=== PATIENT | female | born 1990 | race Caucasian/White ===

== ENCOUNTER 2024-04-13 06:01 | Emergency (ER) | payer BC, SELFPAY ==
[2024-04-13 06:04] VITALS: BP 118/79
[2024-04-13 06:26] VITALS: BMI 18.2
[2024-04-13 06:49] LABS: HCG, Serum Qualitative Screen Negative
[2024-04-13 06:57] LABS: % Basophils 0.5 % (0-2); % Eosinophils 0.5 % (0-6); % Immature Granulocytes 0.4 % (0-0.5); % Lymphocytes 3.4 % (20.5-51.1); % Monocytes 7.2 % (1.7-9.3); Absolute Basophils 0.1 10^3/uL (0-0.2); Absolute Eosinophils 0.1 10^3/uL (0-0.7); Absolute Lymphocytes 0.4 10^3/uL (1.2-3.4); Absolute Monocytes 0.8 10^3/uL (0.1-0.6); Absolute Neutrophils 9.6 10^3/uL (1.4-6.5); Hematocrit 42.3 % (37.0-47.0); Hemoglobin 14.7 g/dL (12.0-16.0); Mean Corp Hgb Conc. 34.8 g/dL (33.0-37.0); Mean Corpuscular Hgb 31.4 pg (27.0-31.0); Mean Corpuscular Volume 90.4 fL (81.0-99.0); Nucleated Red Blood Cells % 0 %; Red Blood Cell Count 4.68 10^6/uL (4.20-5.40); Red Cell Dist. Width 12.2 % (11.5-14.5); White Blood Cell Count 10.9 10^3/uL (4.8-10.8)
--- NOTE | 2024-04-13 07:02 | ED.GENMED ---
History of Present Illness
General
Chief Complaint: Abdominal Symptoms
Source: patient
Exam Limitations: none
Nursing documentation reviewed up to this point in time: agreed with
History of Present Illness
History of Present Illness:
34 yo female w no PMHX presents for sudden onset N & V since 10 p.m. last night. Vomited hourly, last emesis 1 hour ago, nonbloody. Diarrhea several times, last episode 4:30 a.m., non bloody. Denies abdominal pain. No known food exposures, no recent
ATBX, no known sick contacts, no recent travel. Denies fever, SOB, CP. Currently menstruating.
Past History
Past History
ED Past Medical History: None
ED Past Surgical History:
Social History
Tobacco: Non-smoker
Alcohol: None
Drug: None
Personal:
Living: with family
Employment: Employed
Review of Systems
Review of Systems
Allergies reviewed?: Yes
All Other Systems: ROS reviewed and negative except as documented in HPI and ROS
Constitutional: Denies fever or chills
EENT: Denies sore throat
Respiratory: Denies trouble breathing
Cardiac: Denies chest pain
ABD/GI: Reports nausea, vomiting and diarrhea; Denies abdominal pain, bloody stools or black stools
: Denies dysuria or difficulty voiding
Musculoskeletal: Reports no symptoms
Skin: Reports other (rash of poison sabi on hands)
Neurological: Reports no symptoms; Denies dizzy, headache or weakness
Phy Exam
Physical Exam
Physical Exam:
GENERAL: No acute distress. A&Ox3.
CONSTITUTIONAL: Afebrile.
EYES: Clear,, conjunctivae normal
ENMT: moist mucus membranes, Pharynx nl
RESPIRATORY: Regular respirations, nonlabored, lungs clear.
CARDIOVASCULAR: Regular rate and rhythm, no murmurs, no rubs.
GI: Soft, nontender, normal BS
MUSCULOSKELETAL: Moves with ease. Well perfused.
SKIN: Warm, dry, pink
PSYCH: Normal mood and affect. Well kept, interactive and appropriate
NEUROLOGIC: Awake, alert and oriented. No focal neurological deficits
Course
Orders/Labs/Results
Orders:
Orders
04/13/24 06:16
IV Insert/Care/Rem.- Treatment PRN
Test Result ONCE
04/13/24 06:33
Complete Blood Count/With Diff Urgent
Comprehensive Metabolic Panel Urgent
HCG, Serum Qualitative Screen Urgent
Comment: Notify provider if positive test present
Lipase Urgent
Urinalysis Reflex To Culture Urgent
Date Specimen was Collected: 04/13/24
Time Specimen was Collected: 06:16
Urine Microscopic Reflex Cult Urgent
04/13/24 08:17
Ondansetron HCl [Zofran] 4 mg PO NOW STA
Ondansetron Orally Disint [Zofran Odt (Orally Disintegrating)] 4 mg .ROUTE .STK-MED ONE
04/13/24 08:18
Ondansetron Orally Disint [Zofran Odt (Orally Disintegrating)] 4 mg PO NOW STA
Abnormal Lab Results
04/13/24
06:33
WBC 10.9 H 10^3/uL
(4.8-10.8)
MCH 31.4 H pg
(27.0-31.0)
MPV 14.1 H fL
(7.4-10.4)
Absolute Neuts (auto) 9.6 H 10^3/uL
(1.4-6.5)
Absolute Lymphs (auto) 0.4 L 10^3/uL
(1.2-3.4)
Absolute Monos (auto) 0.8 H 10^3/uL
(0.1-0.6)
Neutrophils % 88.0 H %
(42.2-75.2)
Lymphocytes % 3.4 L %
(20.5-51.1)
BUN 19 H mg/dl
(7-17)
Glucose 135 H mg/dl
(70-99)
Albumin 5.1 H g/dl
(3.5-5.0)
Urine Ketones 1+ A
(Negative)
Ur Occult Blood Reflex 3+ A
(Negative)
Urine Bilirubin 1+ A
(Negative)
04/13/24 06:33
04/13/24 06:33
Vital Signs
Initial and Last Documented VS:
Initial Vital Signs
Temp Pulse Resp BP Pulse Ox
99.1 F 128 16 118/79 100
04/13/24 06:04 04/13/24 06:04 04/13/24 06:04 04/13/24 06:04 04/13/24 06:04
Last Documented Vital Signs
Temp Pulse Resp BP Pulse Ox
99.1 F 109 14 109/73 100
04/13/24 06:04 04/13/24 08:15 04/13/24 08:15 04/13/24 08:00 04/13/24 08:15
MDM/Problems Addressed
Differential Diagnosis Includes:
Viral gastroenteritis,
MDM/Problems Addressed:
34 yo female w no PMHX presents for sudden onset N & V since 10 p.m. last night. Vomited hourly, last emesis 1 hour ago, nonbloody. Diarrhea several times, last episode 4:30 a.m., non bloody. Denies abdominal pain. No known food exposures, no recent
ATBX, no known sick contacts, no recent travel. Denies fever, SOB, CP. Currently menstruating.
Pleasant, well appearing, afebrile, NAD
7:25 a.m.
Continues to deny pain, nausea. Trying po fluids
CBC with mildly elevated Neutrophils reactive from infectious process, otherwise normal
CMP No clinically significant abnormality
Lipase normal
Pt tolerating fluids, still 'a little' nauseous. Zofran ordered prior to discharge. Rx for Zofran given to pt
Copy of lab work given to patient and offered to answer any questions, she had none
Pt ambulated out with normal gait at discharge
*Critical Care Note
Total Time (30-74mins, 75-104mins- exclusive of procedures): Not Applicable
ED Attending Note
-
Portions of this chart may have been created with voice recognition software.� Occasional wrong word or��sound alike� substitutions may have occurred due to the inherent limitations of voice recognition software.
Discharge Plan
Departure
Patient Disposition: Home (Routine Discharge)
Date of Disposition: 04/13/24
Time of Disposition: 08:05
Patient with high blood pressure during this ER visit?: No
Condition: Good
Discharge Problem:
Gastroenteritis
Instructions: Diarrhea in teens and adults, Dehydration, Adult (DC), Nausea and Vomiting, Adult (DC)
Prescriptions:
New
ondansetron 4 mg tablet,disintegrating
4 mg PO Q8H PRN (Reason: nausea and vomiting) 3 Days Qty: 9 0RF
No Action
vit-iron fum-folic ac [ Tablet] 28 mg iron- 800 mcg Tablet
1 tab PO DAILY
Stand Alone Forms: Return to Work
Activity Restrictions/Additional Instructions:
As we discussed you most likely have a GI viral illness, drink plenty of fluids as you are mildly dehydrated, Zofran as needed for nausea.
Interventions
Interventions:
*Risk Screen - Suicide Last Done: 04/13/24 06:04
*General Assessment Last Done: 04/13/24 06:04
*Neglect/Abuse Screening Last Done: 04/13/24 06:04
ED- Fall Risk Assessment Last Done: 04/13/24 06:04
*ED COVID-19 Vaccine History Last Done: 04/13/24 06:04
*Nursing Disposition Last Done: 04/13/24 08:25
MD-Lkwdzg-Ijkgzvgsbx Assessment Last Done: 04/13/24 06:34
Discharge Date and Time
Discharge Date/Time: 04/13/24 08:33
Print Language: BELARUSIAN
[2024-04-13 07:07] VITALS: BP 106/64
[2024-04-13 07:13] LABS: Urine Albumin Trace (Neg - Trace); Urine Bilirubin 1+ (Negative); Urine Character Very Cloudy (Clear); Urine Color Yellow; Urine Glucose Negative (Negative); Urine Ketone 1+ (Negative); Urine Leukocyte Negative (Negative); Urine Nitrite Negative (Negative); Urine Occult Blood 3+ (Negative); Urine Specific Gravity 1.025 (<1.030); Urine Urobilinogen Negative (Neg - 1+)
[2024-04-13 07:16] LABS: ALT (SGPT) 21 U/L (0-35); AST (SGOT) 25 U/L (14-36); Albumin 5.1 g/dl (3.5-5.0); Alkaline Phosphatase 91 U/L (38-126); Blood Urea Nitrogen 19 mg/dl (7-17); Carbon Dioxide 22 mmol/L (22-30); Chloride 103 mmol/L (98-107); Estimated Creatinine Clearance 74 ml/min; Glucose 135 mg/dl (70-99); Lipase 42 U/L (23-300); Potassium 3.7 mmol/L (3.5-5.1); Sodium 138 mmol/L (135-145); Total Bilirubin 1.1 mg/dl (0.2-1.3); Total Protein 7.6 g/dl (6.3-8.2); eGFR > 60.00
[2024-04-13 07:27] LABS: Mean Platelet Volume 14.1 fL (7.4-10.4); Platelet Count 161 10^3/uL (130-400)
[2024-04-13 08:00] VITALS: BP 109/73
[2024-04-13 08:12] LABS: Urine Amorphous Seen; Urine Squamous Cell >30 /LPF (Few)
[2024-04-13 08:16] LABS: Urine Hyaline Cast SEEN /LPF (0-2)
[2024-04-13 08:17] LABS: Urine Red Blood Cell None Seen /HPF (0-2); Urine White Cell None Seen /HPF (0-5)
[2024-04-13] MEDS: ZOFRAN ODT (ORALLY DISINTEGRATING) 4 MG PO (08:19)
== END 2024-04-13 08:33 | disposition home or self-care (01) ==
LOC: EMR 06:01
PROVIDERS: EMERGENCY PHYSICIAN Student in an Organized Health Care Education/Training Program
DX: K52.9 Noninfective gastroenteritis and colitis, unspecified (principal)
CPT/HCPCS: 99283; 80053; 81003; 81015; 83690; 84703; 85025

== ENCOUNTER → 2024-04-24 10:07 | Outpatient (REF) | payer BC, SELFPAY ==
[2024-04-24 13:07] LABS: % Basophils 0.8 % (0-2); % Eosinophils 2.5 % (0-6); % Immature Granulocytes 0.4 % (0-0.5); % Lymphocytes 28.3 % (20.5-51.1); % Monocytes 7.4 % (1.7-9.3); % Neutrophils 60.6 % (42.2-75.2); Absolute Basophils 0.1 10^3/uL (0-0.2); Absolute Eosinophils 0.2 10^3/uL (0-0.7); Absolute Monocytes 0.5 10^3/uL (0.1-0.6); Absolute Neutrophils 4.3 10^3/uL (1.4-6.5); Hematocrit 39.9 % (37.0-47.0); Hemoglobin 13.7 g/dL (12.0-16.0); Mean Corp Hgb Conc. 34.3 g/dL (33.0-37.0); Mean Corpuscular Hgb 31.4 pg (27.0-31.0); Mean Corpuscular Volume 91.3 fL (81.0-99.0); Mean Platelet Volume 13.7 fL (7.4-10.4); Nucleated Red Blood Cells % 0 %; Platelet Count 178 10^3/uL (130-400); Red Blood Cell Count 4.37 10^6/uL (4.20-5.40); Red Cell Dist. Width 11.9 % (11.5-14.5); White Blood Cell Count 7.1 10^3/uL (4.8-10.8)
[2024-04-24 13:27] LABS: ALT (SGPT) 18 U/L (0-35); AST (SGOT) 23 U/L (14-36); Albumin 4.8 g/dl (3.5-5.0); Alkaline Phosphatase 87 U/L (38-126); Blood Urea Nitrogen 10 mg/dl (7-17); Carbon Dioxide 28 mmol/L (22-30); Chloride 103 mmol/L (98-107); Glucose 101 mg/dl (70-99); HDL Cholesterol 55 mg/dl; LDL Cholesterol, Calculated 136 mg/dl; Potassium 4.5 mmol/L (3.5-5.1); Sodium 140 mmol/L (135-145); Total Bilirubin 0.8 mg/dl (0.2-1.3); Total Cholesterol 219 mg/dl (50-199); Total Protein 7.2 g/dl (6.3-8.2); Triglyceride 142 mg/dl (10-149); Very Low Density Lipoprotein 28 mg/dl (0-30); eGFR > 60.00
[2024-04-24 13:56] LABS: TSH 3.06 uIU/ml (0.47-4.68)
[2024-04-26 13:41] LABS: Quantiferon Plus TB1 minus NIL 0.04 IU/mL (<=0.34); Quantiferon Plus TB2 minus NIL 0.06 IU/mL (<=0.34); Quantiferon TB Gold Plus Negative (Negative)
== END ==
LOC: HWLAB 10:07
DX: Z00.00 Encounter for general adult medical examination without abnormal findings (principal); Z11.1 Encounter for screening for respiratory tuberculosis
CPT/HCPCS: 36415; 80053; 80061; 84443; 85025; 86480